=== PATIENT | female | born 1930 | race Caucasian/White ===

== ENCOUNTER 2017-01-15 10:13 | Outpatient (CLI) | payer OTHER ==
[2014-02-17 13:54] VITALS: BMI 35.4
--- NOTE | 2017-01-15 10:50 | US ---
EXAM: Transabdominal pelvic ultrasound HISTORY: Urinary frequency, concern for uterine mass COMPARISON: None TECHNIQUE: Transabdominal pelvic ultrasound was performed FINDINGS: Uterus measures 2.7 x 3.7 x 7.8 cm. Several myometrial calcifications noted. Endometrium is thickened and measures 1.3 cm. Right and left ovary are not visualized. No free fluid identifie d. IMPRESSION: 1. Unexpected finding: Thickened endometrium measuring 1.3 cm. Tissue sampling is recommended in a postmenopausal patient. 2. Several myometrial calcifications may represent calcified fibroids or vascular calcifications. 3. Nonvisualization right and left ovary
== END 2017-01-15 10:14 | disposition home or self-care (01) ==
LOC: RAD 10:13
PROVIDERS: ATTEND Family Medicine
DX: R35.0 Frequency of micturition (principal)

== ENCOUNTER 2017-05-04 16:21 | Outpatient (CLI) ==
[2014-02-17 13:54] VITALS: BMI 35.4
--- NOTE | 2017-05-04 16:51 | DI ---
EXAM: Radiographs, left shoulder HISTORY: Initial presentation for left shoulder injury due to a fall. COMPARISON: None available. TECHNIQUE: Three views. FINDINGS: Bone mineralization is decreased. There is no fracture or dislocation. Moderate inferio r humeral head marginal osteophyte formation noted. There is mild spurring at the acromioclavicular joint. No focal soft tissue abnormality is seen. Aortic atherosclerotic calcifications noted. Dada cified granulomatous changes present in the left hilar region. Visualized left lung is clear IMPRESSION: No fracture or dislocation.
== END 2017-05-04 16:22 | disposition home or self-care (01) ==
LOC: RAD 16:21
PROVIDERS: ATTEND Family Medicine
DX: M25.511 Pain in right shoulder (principal)

== ENCOUNTER 2017-05-11 12:49 | Outpatient (CLI) ==
[2014-02-17 13:54] VITALS: BMI 35.4
--- NOTE | 2017-05-11 17:15 | MRI ---
EXAM: MRI left shoulder without contrast. HISTORY: Shoulder pain after fall. Fall approximate 1.5 weeks ago. Decreased range of motion. No left shoulder surgery reported.. TECHNIQUE: Using a local coil on a high field strength magnet multiplanar multisequence MRI was per formed of the left shoulder without intravenous or intra-articular gadolinium contrast.. COMPARISON: Three-view plain film examination left shoulder 05/04/2017. FINDINGS: Left acromioclavicular joint osteoarthrosis. Some subacromial enthesopathy/keel spurring with thickening of the coracoacromial ligament/arch which is otherwise intact. Deltoid muscle fatt y infiltration/atrophy. Large amount of free fluid throughout the subacromial/subdeltoid bursa whic h is somewhat complex. Muscle bulk of the rotator cuff shows diffuse fatty infiltration with some atrophy as well. Markedl y severe diffuse supraspinatus tendinosis over the insertion and critical zone. High-grade tearing to the far anterior insertional aspect of the supraspinatus. Suspected full-thickness extent.. Thi s area of tear measures approximately 15 x 7 mm. Diffuse infraspinatus tendinosis to a lesser degre e. Posterior inferior intact teres minor tendon fibers. Anterior intact subscapularis tendon fiber s. The long head of the biceps tendon shows intact fibers located in expected position within the b icipital groove with intra-articular biceps tendinosis and question bicipital tenosynovitis. Left humeral head seated marked left glenohumeral joint osteoarthrosis. [id number] appearance to the inferior aspect of the articulation. Diffuse joint centered subchondral bone marrow edema/remod eling. Productive osteophyte formation. Left glenohumeral joint effusion. Synovitis. Suspected a ssociated degenerative tear of the left glenoid labrum. IMPRESSION: Left acromioclavicular joint osteoarthrosis. Rotator cuff muscle bulk fatty infiltration with some atrophy. Markedly severe diffuse supraspinatu s tendinosis over the insertion and critical zone with high-grade tearing to the far anterior insert ional aspect with suspected full-thickness extent. Large amount free fluid throughout the subacromi al/subdeltoid bursa which is somewhat complex. A component of complex bursitis could have this appe arance. Diffuse infraspinatus tendinosis to a lesser degree. Proximal long head biceps tendinosis and question bicipital tenosynovitis. Markedly severe left glenohumeral joint osteoarthrosis with [id number] appearance. Left glenohume ral joint effusion. Synovitis. Suspected associated degenerative tear of the left glenoid labrum.
== END 2017-05-11 12:50 | disposition home or self-care (01) ==
LOC: RAD 12:49
PROVIDERS: ATTEND Family Medicine
DX: M25.512 Pain in left shoulder (principal); W19.XXXA Unspecified fall, initial encounter

== ENCOUNTER 2017-05-14 11:12 | Outpatient (CLI) ==
[2014-02-17 13:54] VITALS: BMI 35.4
== END 2017-05-14 11:13 ==
LOC: AMBL 11:12
PROVIDERS: ATTEND Internal Medicine
DX: R25.8 Other abnormal involuntary movements (principal); R53.1 Weakness; R41.0 Disorientation, unspecified; R26.9 Unspecified abnormalities of gait and mobility; W19.XXXA Unspecified fall, initial encounter

== ENCOUNTER 2017-07-07 16:15 | Outpatient (CLI) ==
[2014-02-17 13:54] VITALS: BMI 35.4
== END 2017-07-07 16:16 | disposition home or self-care (01) ==
LOC: AMBL 16:15
PROVIDERS: ATTEND Internal Medicine